=== PATIENT | male | born 2000 | race Two or more races ===

== ENCOUNTER 2023-04-20 10:25 | Emergency (ER) | payer OTHER ==
[~2023-04-20] VITALS: Ht 172.7 cm; Wt 63.2 kg
[2023-04-20 11:41] VITALS: BP 104/56
[2023-04-20] MEDS ORDERED: TOB03OS OP (12:15)
[2023-04-20] MEDS ORDERED: LIDO2SOL26 MT (12:15)
[2023-04-20] MEDS ORDERED: CEPH500C PO (12:15)
== END 2023-04-20 12:22 | disposition home or self-care (01) ==
LOC: ER 10:25
DX: J02.9 Acute pharyngitis, unspecified (principal); H00.014 Hordeolum externum left upper eyelid; Z79.899 Other long term (current) drug therapy

== ENCOUNTER 2024-04-15 18:48 | Emergency (ER) | payer OTHER ==
[~2024-04-15] VITALS: Ht 172.7 cm; Wt 61.7 kg
[~2024-04-15 18:48] MED LIST: CEPH500C PO; LIDO2SOL26 MT; TOB03OS OP
[2024-04-15] MEDS ORDERED: NEOM1OIN EX (21:25)
[2024-04-15] MEDS ORDERED: LIDO1GEL EX (21:25)
[2024-04-15 21:37] VITALS: BP 110/62; PULSE 74; RESP 16; TEMP 98; O2SAT 96
== END 2024-04-15 21:36 | disposition home or self-care (01) ==
LOC: ER 18:52
DX: T21.24XA Burn of second degree of lower back, initial encounter (principal); X08.8XXA Exposure to other specified smoke, fire and flames, initial encounter; Y93.89 Activity, other specified; Y92.89 Other specified places as the place of occurrence of the external cause; Y99.8 Other external cause status
CPT/HCPCS: 16000